=== PATIENT | female | born 1980 | race American Indian/Alaskan Native ===

== ENCOUNTER 2016-09-06 04:28 | Emergency (ER) | payer MEDICAID ==
[2016-09-06 04:46] VITALS: BP 126/81
[2016-09-06 06:11] LABS: Basophils % (Auto) 0.7 % (0.0-1.8); Eosinophils % (Auto) 0.9 % (0.0-4.3); Hematocrit 37.2 % (30.3-42.9); Hemoglobin 12.5 gm/dl (10.1-14.3); Mean Corpuscular HGB Conc 34 % (30-34); Mean Corpuscular Hemoglobin 27 pg (28-32); Mean Corpuscular Volume 82 fl (79-97); Platelet Count 222 K/mm3 (140-440); Red Blood Count 4.56 M/mm3 (3.65-5.03); Red Cell Distribution Width 15.5 % (13.2-15.2); White Blood Count 3.5 K/mm3 (4.5-11.0)
[2016-09-06 06:28] LABS: Anion Gap 19 mmol/L; Blood Urea Nitrogen 6 mg/dL (7-17); Calcium 9.2 mg/dL (8.4-10.2); Carbon Dioxide 22 mmol/L (22-30); Chloride 99.9 mmol/L (98-107); Glucose 99 mg/dL (65-100); Potassium 3.6 mmol/L (3.6-5.0); Sodium 137 mmol/L (137-145)
--- NOTE | 2016-09-06 07:47 | XRay Report ---
ROUTINE CHEST, TWO VIEWS: HISTORY: Shortness of breath. The trachea, heart, mediastinal contour, lung [place] and bony thorax are unremarkable. No significant change since 12/21/14. IMPRESSION: Unremarkable chest x-ray.
== END 2016-09-06 11:18 | disposition left against medical advice (07) ==
LOC: ED 04:28
DX: R06.00 Dyspnea, unspecified (principal); K21.9 Gastro-esophageal reflux disease without esophagitis; I10 Essential (primary) hypertension; F17.200 Nicotine dependence, unspecified, uncomplicated; Z53.21 Procedure and treatment not carried out due to patient leaving prior to being seen by health care provider
CPT/HCPCS: 36415; 71020; 80048; 84484; 85025; 93005; 93010

== ENCOUNTER 2017-12-21 08:29 | Emergency (ER) | payer MEDICAID ==
[2017-12-21] MEDS ORDERED: NACL 0.9% 1000 ML 1,000 ML IV ONE (08:41)
[2017-12-21 09:17] LABS: Basophils % (Auto) 0.7 % (0.0-1.8); Eosinophils # (Auto) 0.1 K/mm3 (0.0-0.4); Eosinophils % (Auto) 3.7 % (0.0-4.3); Hematocrit 39.8 % (30.3-42.9); Hemoglobin 13.1 gm/dl (10.1-14.3); Lymphocytes # (Auto) 1.9 K/mm3 (1.2-5.4); Mean Corpuscular HGB Conc 33 % (30-34); Mean Corpuscular Hemoglobin 27 pg (28-32); Mean Corpuscular Volume 83 fl (79-97); Monocytes # (Auto) 0.2 K/mm3 (0.0-0.8); Monocytes % (Auto) 5.5 % (0.0-7.3); Platelet Count 279 K/mm3 (140-440); Red Blood Count 4.79 M/mm3 (3.65-5.03); Red Cell Distribution Width 15.6 % (13.2-15.2)
[2017-12-21 09:41] LABS: Alanine Aminotransferase 10 units/L (7-56); Albumin 4.2 g/dL (3.9-5); BUN/Creatinine Ratio 11; Blood Urea Nitrogen 8 mg/dL (7-17); Hemolysis Index 12
[2017-12-21] MEDS ORDERED: ZOFRAN IV ONE (10:00)
[2017-12-21] MEDS ORDERED: MORPHINE IV PRN (10:00)
--- NOTE | 2017-12-21 10:08 | Emergency Department Report ---
ED General Adult HPI - General Chief complaint: Abdominal Pain Stated complaint: BACK AND CHEST PAIN Time Seen by Provider: 12/21/17 09:38 Source: patient, family Mode of arrival: Wheelchair Limitations: Physical Limitation - Related Data Home Medications Medication Instructions Recorded Confirmed Last Taken raNITIdine HCl [Ranitidine 150mg 150 mg PO BID 08/11/14 08/22/14 08/21/14 Cap] Previous Rx's Medication Instructions Recorded Last Taken Type HYDROcodone/APAP 5-325 [[place] 1 each PO Q6HR PRN #20 tablet 08/12/14 08/21/14 Rx 5/325] Oxycodone HCl/Acetaminophen 1 each PO Q8HR PRN #20 tablet 08/22/14 Unknown Rx [Percocet 10-325 mg] cephALEXin [Keflex] 500 mg PO Q8H #20 capsule 08/22/14 Unknown Rx ALBUTEROL Inhaler [ProAir HFA 2 puff IH QID PRN #1 inhalation 12/21/14 Unknown Rx Inhaler] Ibuprofen [Motrin 800 MG tab] 800 mg PO Q8HR PRN #30 tablet 12/21/14 Unknown Rx traMADol [Ultram 50 MG tab] 50 mg PO Q6HR PRN #20 tablet 12/21/14 Unknown Rx Acetaminophen/Codeine [Tylenol 1 tab PO Q6H PRN #12 tab 12/21/17 Unknown Rx /Codeine # 3 tab] Naproxen [Naprosyn] 500 mg PO Q12H 3 Days #6 tablet 12/21/17 Unknown Rx Promethazine [Phenergan TAB] 25 mg PO Q8HR PRN #12 tab 12/21/17 Unknown Rx Sulfamethoxazole/Trimethoprim 1 each PO BID 3 Days #6 tablet 12/21/17 Unknown Rx [Bactrim DS TAB] Allergies Allergy/AdvReac Type Severity Reaction Status Date / Time No Known Allergies Allergy Verified 05/16/13 23:52 ED Review of Systems ROS: Stated complaint: BACK AND CHEST PAIN Other details as noted in HPI ED Past Medical Hx - Past Medical History Previous Medical History?: Yes Hx Hypertension: Yes Hx Heart Attack/AMI: No Hx GERD: Yes Hx Liver Disease: No Hx Renal Disease: No Hx Sickle Cell Disease: No Hx Seizures: No Hx Asthma: No Hx COPD: No - Surgical History Past Surgical History?: Yes Hx Cholecystectomy: Yes (08/12/14 ([facility])) - Social History Smoking Status: Current Every Day Smoker Substance Use Type: None - Medications Home Medications: Home Medications Medication Instructions Recorded Confirmed Last Taken Type raNITIdine HCl [Ranitidine 150mg 150 mg PO BID 08/11/14 08/22/14 08/21/14 History Cap] HYDROcodone/APAP 5-325 [[place] 1 each PO Q6HR PRN #20 tablet 08/12/14 08/22/14 Rx 5/325] Oxycodone HCl/Acetaminophen 1 each PO Q8HR PRN #20 tablet 08/22/14 Unknown Rx [Percocet 10-325 mg] cephALEXin [Keflex] 500 mg PO Q8H #20 capsule 08/22/14 Unknown Rx ALBUTEROL Inhaler [ProAir HFA 2 puff IH QID PRN #1 inhalation 12/21/14 Unknown Rx Inhaler] Ibuprofen [Motrin 800 MG tab] 800 mg PO Q8HR PRN #30 tablet 12/21/14 Unknown Rx traMADol [Ultram 50 MG tab] 50 mg PO Q6HR PRN #20 tablet 12/21/14 Unknown Rx Acetaminophen/Codeine [Tylenol 1 tab PO Q6H PRN #12 tab 12/21/17 Unknown Rx /Codeine # 3 tab] Naproxen [Naprosyn] 500 mg PO Q12H 3 Days #6 tablet 12/21/17 Unknown Rx Promethazine [Phenergan TAB] 25 mg PO Q8HR PRN #12 tab 12/21/17 Unknown Rx Sulfamethoxazole/Trimethoprim 1 each PO BID 3 Days #6 tablet 12/21/17 Unknown Rx [Bactrim DS TAB] ED Physical Exam - General Limitations: Physical Limitation ED Course Vital Signs 12/21/17 08:34 Temperature 98.6 F Pulse Rate 86 Respiratory 24 Rate Blood Pressure 154/105 O2 Sat by Pulse 98 Oximetry - Reevaluation(s) Reevaluation #1: 12/21/17 10:50 Patient started on normal saline 1 L, she is given Zofran 8 mg IV and morphine 4 mg IV and her pain has subsided for now. She is awaiting CT scan with IV contrast. ED Medical Decision Making - Lab Data Result diagrams: 12/21/17 09:00 12/21/17 09:00 Lab Results 12/21/17 12/21/17 12/21/17 Range/Units 09:00 09:00 10:28 WBC 3.8 L (4.5-11.0) K/mm3 RBC 4.79 (3.65-5.03) M/mm3 Hgb 13.1 (10.1-14.3) gm/dl Hct 39.8 (30.3-42.9) % MCV 83 (79-97) fl MCH 27 L (28-32) pg MCHC 33 (30-34) % RDW 15.6 H (13.2-15.2) % Plt Count 279 (140-440) K/mm3 Lymph % (Auto) 50.0 H (13.4-35.0) % [place] % (Auto) 5.5 (0.0-7.3) % Eos % (Auto) 3.7 (0.0-4.3) % Baso % (Auto) 0.7 (0.0-1.8) % Lymph # 1.9 (1.2-5.4) K/mm3 [place] # 0.2 (0.0-0.8) K/mm3 Eos # 0.1 (0.0-0.4) K/mm3 Baso # 0.0 (0.0-0.1) K/mm3 Seg Neutrophils % 40.1 (40.0-70.0) % Seg Neutrophils # 1.5 L (1.8-7.7) K/mm3 Sodium 139 (137-145) mmol/L Potassium 3.7 (3.6-5.0) mmol/L Chloride 105.9 (98-107) mmol/L Carbon Dioxide 21 L (22-30) mmol/L Anion Gap 16 mmol/L BUN 8 (7-17) mg/dL Creatinine 0.7 (0.7-1.2) mg/dL Estimated GFR > 60 ml/min BUN/Creatinine Ratio 11 % Glucose 88 (65-100) mg/dL Calcium 9.0 (8.4-10.2) mg/dL Total Bilirubin 0.20 (0.1-1.2) mg/dL AST 15 (5-40) units/L ALT 10 (7-56) units/L Alkaline Phosphatase 59 (35-129) units/L Troponin T < 0.010 (0.00-0.029) ng/mL Total Protein 7.0 (6.3-8.2) g/dL Albumin 4.2 (3.9-5) g/dL Albumin/Globulin Ratio 1.5 % Lipase 20 (13-60) units/L HCG, Qual (Negative) Urine Color (Yellow) Urine Turbidity (Clear) Urine pH (5.0-7.0) Ur Specific [place] (1.003-1.030) Urine Protein (Negative) mg/dL Urine Glucose (UA) (Negative) mg/dL Urine Ketones (Negative) mg/dL Urine Blood (Negative) Urine Nitrite (Negative) Urine Bilirubin (Negative) Urine Urobilinogen (<2.0) mg/dL Ur Leukocyte Esterase (Negative) Urine WBC (Auto) (0.0-6.0) /HPF Urine RBC (Auto) (0.0-6.0) /HPF U Epithel Cells (Auto) (0-13.0) /HPF Urine Bacteria (Auto) (Negative) /HPF Urine Mucus /HPF 12/21/17 12/21/17 Range/Units 10:28 Unknown WBC (4.5-11.0) K/mm3 RBC (3.65-5.03) M/mm3 Hgb (10.1-14.3) gm/dl Hct (30.3-42.9) % MCV (79-97) fl MCH (28-32) pg MCHC (30-34) % RDW (13.2-15.2) % Plt Count (140-440) K/mm3 Lymph % (Auto) (13.4-35.0) % [place] % (Auto) (0.0-7.3) % Eos % (Auto) (0.0-4.3) % Baso % (Auto) (0.0-1.8) % Lymph # (1.2-5.4) K/mm3 [place] # (0.0-0.8) K/mm3 Eos # (0.0-0.4) K/mm3 Baso # (0.0-0.1) K/mm3 Seg Neutrophils % (40.0-70.0) % Seg Neutrophils # (1.8-7.7) K/mm3 Sodium (137-145) mmol/L Potassium (3.6-5.0) mmol/L Chloride (98-107) mmol/L Carbon Dioxide (22-30) mmol/L Anion Gap mmol/L BUN (7-17) mg/dL Creatinine (0.7-1.2) mg/dL Estimated GFR ml/min BUN/Creatinine Ratio % Glucose (65-100) mg/dL Calcium (8.4-10.2) mg/dL Total Bilirubin (0.1-1.2) mg/dL AST (5-40) units/L ALT (7-56) units/L Alkaline Phosphatase (35-129) units/L Troponin T (0.00-0.029) ng/mL Total Protein (6.3-8.2) g/dL Albumin (3.9-5) g/dL Albumin/Globulin Ratio % Lipase (13-60) units/L HCG, Qual Negative (Negative) Urine Color Yellow (Yellow) Urine Turbidity Slightly-cloudy (Clear) Urine pH 5.0 (5.0-7.0) Ur Specific [place] 1.024 (1.003-1.030) Urine Protein <15 mg/dl (Negative) mg/dL Urine Glucose (UA) Neg (Negative) mg/dL Urine Ketones Neg (Negative) mg/dL Urine Blood Sm (Negative) Urine Nitrite Neg (Negative) Urine Bilirubin Neg (Negative) Urine Urobilinogen 2.0 (<2.0) mg/dL Ur Leukocyte Esterase Neg (Negative) Urine WBC (Auto) 1.0 (0.0-6.0) /HPF Urine RBC (Auto) 4.0 (0.0-6.0) /HPF U Epithel Cells (Auto) 4.0 (0-13.0) /HPF Urine Bacteria (Auto) 1+ (Negative) /HPF Urine Mucus 3+ /HPF Urine culture sent - EKG Data -: EKG Interpreted by Me (attending physician) EKG shows normal: sinus rhythm Rate: normal (69 bpm) - EKG Data Interpretation: no acute changes, normal EKG - Radiology Data Radiology results: report reviewed CT scan of the abdomen and pelvis with IV contrast dictated by radiologist's report reviewed by myself. Please see report below Patient: SONYA CASTRO MR#: [id number] : 1980 Acct:[id number] Age/Sex: 37 / F ADM Date: 12/21/17 Loc: ED Attending Dr: Ordering Physician: JOSH SANCHEZ Date of Service: 12/21/17 Procedure(s): CT abdomen pelvis w con Accession Number(s): [id number] cc: JOSH SANCHEZ CT ABDOMEN PELVIS WITH CONTRAST: HISTORY: Abdominal pain, back pain, nausea. COMPARISON: 08/22/14. TECHNIQUE: Helical CT in 1.25mm intervals following IV contrast. Sagittal and coronal reconstructions. FINDINGS: Lung bases: Normal. Liver: Normal. Biliary system: Cholecystectomy. No biliary dilatation. Pancreas: Normal. Spleen: Normal. Kidneys/ureters/bladder: Normal. Adrenal glands: Normal. Aorta: Normal. Intestines: Within normal limits given no oral contrast was administered. No inflammation or obstruction. Appendix: Normal. Pelvic viscera: A 1.4 cm peripherally enhancing left ovarian cyst is identified the uterus and right adnexa are unremarkable. Ascites: None. Adenopathy: None. Musculoskeletal: Moderate degenerative disc disease is noted at L5-S1. No bony fracture or malalignment. A small umbilical hernia containing fat is identified. IMPRESSION: No acute inflammatory process is identified. 1.4 cm left ovarian cyst. Degenerative disc disease at L5-S1. Umbilical hernia containing fat. Cholecystectomy. Transcribed By: TTR Dictated By: KARLA LOYD JR, MD Electronically Authenticated By: KARLA LOYD JR, MD Signed Date/Time: 12/21/17 122 DD/ 1221 TD/TT: 12/21/17 1223 - Medical Decision Making This is a 37-year-old female presented to the emergency room with back and upper abdominal pain. Patient was also complaining of midsternal chest pain with abdominal pain which she does not have any history of cardiac problems. Patient was seen and examined by myself. Physical findings for generalized abdominal tenderness, back exam is normal. Laboratory studies done CBC stable with minor abnormalities, CMP stable. Lipase stable, hCG negative. Patient had troponin which were negative. EKG is stable. CT scan of the abdomen and pelvis with IV contrast dictated by radiologist and report reviewed by myself. No acute inflammatory process is identified. 1.4 cm left ovarian cyst. Degenerative disc disease at L5-S1. Umbilical hernia containing fat. Cholecystectomy. CT scan and laboratory findings along with diagnosis and treatment plan explained to patient she was understanding. She was given morphine 8 mg IV in 4 mg increments for abdominal pain which resolved. Her back pain is also resolved. She was given Zofran 8 mg IV and 1 L normal saline in the emergency room and she has no nausea present. I discussed the patient as she will need to follow up with [facility] for ovarian cysts, orthopedic for moderate degenerative disc disease. Patient vital signs stable she is afebrile and is pain-free at present. She is nontoxic in appearance. Able to tolerate water without any nausea or vomiting. Discharged home in stable condition to follow up with [facility] on 12/25/2017 and also her primary care physician and we will give referral to see orthopedic doctor. Discharged home with her family with prescription for naproxen and Phenergan. - Differential Diagnosis appendicitis, pancreatitis, SBO, ectopic , Pyelo, UTI, Cyst Critical care attestation.: If time is entered above; I have spent that time in minutes in the direct care of this critically ill patient, excluding procedure time. ED Disposition Clinical Impression: Left ovarian cyst, Degenerative disc disease, lumbar, Acute cystitis with hematuria, Atypical chest pain Abdominal pain Qualifiers: Abdominal location: generalized Qualified Code(s): R10.84 - Generalized abdominal pain Back pain Qualifiers: Back pain location: low back pain Chronicity: unspecified Back pain laterality : bilateral Sciatica presence: without sciatica Qualified Code(s): M54.5 - Low back pain Nausea & vomiting Qualifiers: Vomiting type: unspecified Vomiting Intractability: non-intractable Qualified Code(s): R11.2 - Nausea with vomiting, unspecified Umbilical hernia Qualifiers: Obstruction and gangrene presence: without obstruction or gangrene Qualified Code(s): K42.9 - Umbilical hernia without obstruction or gangrene Disposition: DC-01 TO HOME OR SELFCARE Is pt being admited?: No Does the pt Need Aspirin: No Condition: Stable Instructions: Abdominal Pain (ED), Degenerative Disc Disease (ED), Acute Nausea and Vomiting (ED), Acute Abdominal Pain (ED), Ovarian Cyst (ED), Umbilical Hernia (ED), Urinary Tract Infection in Women (ED), Chest Pain (ED) Additional Instructions: Please follow up with [facility] in 4 days regarding ovarian cysts. Follow-up with orthopedic doctor for management of lower back pain with findings for degenerative disc disease at the lumbar spine area. Take naproxen for pain as instructed for pain Take Bactrim DS for 3 days for small urinary tract infection. Follow-up with primary care physician in 3-5 days for management of small urinary tract infection, stable umbilical hernia pain. Your primary care can refer you for follow-up for umbilical hernia to specialist if needed. If he do not have a primary care doctor follow[facility]up with [facility]. Increase her fluid intake His return to emergency room if your symptoms return. Prescriptions: Acetaminophen/Codeine [Tylenol /Codeine # 3 tab] 1 tab PO Q6H PRN #12 tab PRN Reason: back pain Naproxen [Naprosyn] 500 mg PO Q12H 3 Days #6 tablet Promethazine [Phenergan TAB] 25 mg PO Q8HR PRN #12 tab PRN Reason: Nausea Sulfamethoxazole/Trimethoprim [Bactrim DS TAB] 1 each PO BID 3 Days #6 tablet Referrals: PRIMARY CAREMD [Primary Care Provider] - 3-5 Days [facility] [Outside] - 3-5 Days KARLA MORRISSEY MD [Staff Physician] - 3-5 Days Forms: Work/School Release Form(ED)
[2017-12-21 10:25] LABS: Bacteria,Urine 1+ /HPF (Negative); Bilirubin,Urine NEG (Negative); Blood,Urine SM (Negative); Color,Urine Yellow (Yellow); Mucus,Urine 3+ /HPF; Protein,Urine <15 mg/dL mg/dL (Negative)
[2017-12-21] MEDS: MORPHINE IV ONE ×3 (10:30→12:00)
--- NOTE | 2017-12-21 12:30 | Cat Scan Report ---
CT ABDOMEN PELVIS WITH CONTRAST: HISTORY: Abdominal pain, back pain, nausea. COMPARISON: 08/22/14. TECHNIQUE: Helical CT in 1.25mm intervals following IV contrast. Sagittal and coronal reconstructions. FINDINGS: Lung bases: Normal. Liver: Normal. Biliary system: Cholecystectomy. No biliary dilatation. Pancreas: Normal. Spleen: Normal. Kidneys/ureters/bladder: Normal. Adrenal glands: Normal. Aorta: Normal. Intestines: Within normal limits given no oral contrast was administered. No inflammation or obstruction. Appendix: Normal. Pelvic viscera: A 1.4 cm peripherally enhancing left ovarian cyst is identified the uterus and right adnexa are unremarkable. Ascites: None. Adenopathy: None. Musculoskeletal: Moderate degenerative disc disease is noted at L5-S1. No bony fracture or malalignment. A small umbilical hernia containing fat is identified. IMPRESSION: No acute inflammatory process is identified. 1.4 cm left ovarian cyst. Degenerative disc disease at L5-S1. Umbilical hernia containing fat. Cholecystectomy.
[2017-12-21 13:59] VITALS: BP 124/82
== END 2017-12-21 13:45 | disposition home or self-care (01) ==
LOC: ED 08:29
DX: N83.202 Unspecified ovarian cyst, left side (principal); M51.36 Other intervertebral disc degeneration, lumbar region; N30.01 Acute cystitis with hematuria; R07.89 Other chest pain; R11.2 Nausea with vomiting, unspecified; K42.9 Umbilical hernia without obstruction or gangrene; I10 Essential (primary) hypertension; K21.9 Gastro-esophageal reflux disease without esophagitis; F17.200 Nicotine dependence, unspecified, uncomplicated; Z90.49 Acquired absence of other specified parts of digestive tract
CPT/HCPCS: 36415; 74177; 80053; 81001; 83690; 84484; 84703; 85025; 87086; 93005; 93010; 96361; 96374; 96375; 96376; 99284; J2270; J2405; J7030; Q9967

== ENCOUNTER 2019-11-12 16:58 | Emergency (ER) | payer MEDICAID ==
[2019-11-12 19:30] VITALS: BP 142/108
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
== END 2019-11-12 21:34 | disposition home or self-care (01) ==
LOC: ED 16:58
DX: M25.561 Pain in right knee (principal); M25.551 Pain in right hip; K21.9 Gastro-esophageal reflux disease without esophagitis; F17.200 Nicotine dependence, unspecified, uncomplicated; Z90.49 Acquired absence of other specified parts of digestive tract; Z79.899 Other long term (current) drug therapy; Z91.013 Allergy to seafood; V63.9XXA Unspecified occupant of heavy transport vehicle injured in collision with car, pick-up truck or van in traffic accident, initial encounter; Y93.89 Activity, other specified; Y92.488 Other paved roadways as the place of occurrence of the external cause; Y99.8 Other external cause status
CPT/HCPCS: 99283

== ENCOUNTER 2020-01-18 00:43 | Emergency (ER) | payer MEDICAID, OTHER ==
[2020-01-18 01:34] VITALS: BP 129/82
--- NOTE | 2020-01-18 02:20 | XRay Report ---
LEFT KNEE 3 VIEWS. INDICATION / CLINICAL INFORMATION: left knee pain COMPARISON: None available. FINDINGS: BONES / JOINT(S): No acute fracture or subluxation. Mild DJD at the medial compartment. SOFT TISSUES: Small joint effusion. ADDITIONAL FINDINGS: None. Signer Name: Ray Tomlin MD Signed: 01/18/2020 2:16 AM Workstation Name: [id number]
[2020-01-18] MEDS ORDERED: predniSONE 20 MG TAB PO ONE (02:37)
[2020-01-18] MEDS ORDERED: ONDANSETRON 4 MG ODT TAB PO ONE (02:37)
[2020-01-18] MEDS ORDERED: IBUPROFEN 600 MG TAB PO ONE (02:37)
[2020-01-18] MEDS ORDERED: HYDROcodone/ACETAMINOPHEN 7.5-325MG TAB PO ONE (02:37)
--- NOTE | 2020-01-18 03:19 | Emergency Department Report ---
ED Extremity Problem HPI - General Chief complaint: Extremity Injury, Lower Stated complaint: LEFT LEG PAIN Source: patient Mode of arrival: Ambulatory Limitations: No Limitations - History of Present Illness Initial comments: Patient is a 39-year-old -[place] female with a history of GERD, asthma and osteoarthritis who presents to the ED with complaint of acute onset p ersistent nontraumatic left knee pain and swelling for the last 1 week. Patient states that the pain has been persistent and the swelling has gotten worse in the last 4 days. Patient states that she has been taking [id number]-tic-[id number] medication with no relief. Patient denies fall, traumatic injury, heavy lifting, low back pain, hip pain, chest pain, shortness of breath, dizziness, numbness and tingling or weakness of lower extremities bilaterally, fever and chills, nausea and vomiting. MD Complaint: extremity pain (Left knee pain), extremity swelling (Left knee), joint swelling (Left knee swelling), joint paint (Left knee) -: Sudden, week(s) (1) Location: left, lower extremity (LEFT KNEE), knee History of Same: Yes -: Yes arthralgia (left knee pain) Severity scale (0 -10): 8 Quality: aching, sharp Consistency: constant Improves with: nothing Worsens with: weight bearing, walking, exertion, palpation Associated Symptoms: denies other symptoms, arthralgias (Left knee pain). denies: chest pain, shortness of breath - Related Data Home Medications Medication Instructions Recorded Confirmed Last Taken raNITIdine HCL [Ranitidine 150mg 150 mg PO BID 08/11/14 08/22/14 08/21/14 Cap] Previous Rx's Medication Instructions Recorded Last Taken Type HYDROcodone/APAP 5-325 [[place] 1 each PO Q6HR PRN #20 tablet 08/12/14 08/21/14 Rx 5/325] Oxycodone HCl/Acetaminophen 1 each PO Q8HR PRN #20 tablet 08/22/14 Unknown Rx [Percocet 10-325 mg] cephALEXin [Keflex] 500 mg PO Q8H #20 capsule 08/22/14 Unknown Rx Albuterol Mdi (or & Nicu Only) 2 puff IH QID PRN #1 inhalation 12/21/14 Unknown Rx [ProAir HFA Inhaler] Ibuprofen [Motrin 800 MG tab] 800 mg PO Q8HR PRN #30 tablet 12/21/14 Unknown Rx traMADoL [Ultram 50 MG tab] 50 mg PO Q6HR PRN #20 tablet 12/21/14 Unknown Rx Acetaminophen/Codeine [Tylenol 1 tab PO Q6H PRN #12 tab 12/21/17 Unknown Rx /Codeine # 3 tab] Promethazine [Phenergan TAB] 25 mg PO Q8HR PRN #12 tab 12/21/17 Unknown Rx Sulfamethoxazole/Trimethoprim 1 each PO BID 3 Days #6 tablet 12/21/17 Unknown Rx [Bactrim DS TAB] Benzonatate [Tessalon Perles] 100 mg PO Q8HR PRN #20 capsule 12/05/18 Unknown Rx predniSONE [Deltasone] 50 mg PO QDAY #5 tab 12/05/18 Unknown Rx Naproxen [Naprosyn] 500 mg PO Q12H PRN 3 Days #30 01/18/20 Unknown Rx tablet predniSONE [Deltasone] 60 mg PO QDAY #15 tab 01/18/20 Unknown Rx tiZANidine [Zanaflex 4mg TAB] 4 mg PO Q12H PRN #30 tablet 01/18/20 Unknown Rx Allergies Allergy/AdvReac Type Severity Reaction Status Date / Time shellfish derived Allergy Shortness Verified 12/04/18 23:48 of Breath ED Review of Systems ROS: Stated complaint: LEFT LEG PAIN Other details as noted in HPI Constitutional: denies: chills, fever Eyes: denies: eye pain, eye discharge, vision change ENT: denies: ear pain, throat pain Respiratory: denies: cough, shortness of breath, wheezing Cardiovascular: denies: chest pain, palpitations Endocrine: no symptoms reported Gastrointestinal: denies: abdominal pain, nausea, diarrhea Genitourinary: denies: urgency, dysuria, discharge Musculoskeletal: joint swelling (Left knee pain and swelling), arthralgia (Left knee pain and swelling). denies: back pain Skin: denies: rash, lesions Neurological: denies: headache, weakness, paresthesias Psychiatric: denies: anxiety, depression Hematological/Lymphatic: denies: easy bleeding, easy bruising ED Past Medical Hx - Past Medical History Previous Medical History?: Yes Hx Hypertension: No Hx Heart Attack/AMI: No Hx GERD: Yes Hx Liver Disease: No Hx Renal Disease: No Hx Sickle Cell Disease: No Hx Seizures: No Hx Asthma: Yes Hx COPD: No - Surgical History Past Surgical History?: Yes Hx Cholecystectomy: Yes (08/12/14 ([facility])) Additional Surgical History: Tubal Ligation - Social History Smoking Status: Current Every Day Smoker Substance Use Type: None - Medications Home Medications: Home Medications Medication Instructions Recorded Confirmed Last Taken Type raNITIdine HCL [Ranitidine 150mg 150 mg PO BID 08/11/14 08/22/14 08/21/14 History Cap] HYDROcodone/APAP 5-325 [[place] 1 each PO Q6HR PRN #20 tablet 08/12/14 08/22/14 08/21/14 Rx 5/325] Oxycodone HCl/Acetaminophen 1 each PO Q8HR PRN #20 tablet 08/22/14 Unknown Rx [Percocet 10-325 mg] cephALEXin [Keflex] 500 mg PO Q8H #20 capsule 08/22/14 Unknown Rx Albuterol Mdi (or & Nicu Only) 2 puff IH QID PRN #1 inhalation 12/21/14 Unknown Rx [ProAir HFA Inhaler] Ibuprofen [Motrin 800 MG tab] 800 mg PO Q8HR PRN #30 tablet 12/21/14 Unknown Rx traMADoL [Ultram 50 MG tab] 50 mg PO Q6HR PRN #20 tablet 12/21/14 Unknown Rx Acetaminophen/Codeine [Tylenol 1 tab PO Q6H PRN #12 tab 12/21/17 Unknown Rx /Codeine # 3 tab] Promethazine [Phenergan TAB] 25 mg PO Q8HR PRN #12 tab 12/21/17 Unknown Rx Sulfamethoxazole/Trimethoprim 1 each PO BID 3 Days #6 tablet 12/21/17 Unknown Rx [Bactrim DS TAB] Benzonatate [Tessalon Perles] 100 mg PO Q8HR PRN #20 capsule 12/05/18 Unknown Rx predniSONE [Deltasone] 50 mg PO QDAY #5 tab 12/05/18 Unknown Rx Naproxen [Naprosyn] 500 mg PO Q12H PRN 3 Days #30 01/18/20 Unknown Rx tablet predniSONE [Deltasone] 60 mg PO QDAY #15 tab 01/18/20 Unknown Rx tiZANidine [Zanaflex 4mg TAB] 4 mg PO Q12H PRN #30 tablet 01/18/20 Unknown Rx ED Physical Exam - General Limitations: No Limitations General appearance: alert, in no apparent distress - Head Head exam: Present: atraumatic, normocephalic, normal inspection - Eye Eye exam: Present: normal appearance, PERRL, EOMI Pupils: Present: normal accommodation - ENT ENT exam: Present: normal exam, normal orophraynx, mucous membranes moist, TM's normal bilaterally, normal external ear exam - Neck Neck exam: Present: normal inspection, full ROM - Respiratory Respiratory exam: Present: normal lung sounds bilaterally. Absent: respiratory distress, wheezes, rales, rhonchi, chest wall tenderness, accessory muscle use, decreased breath sounds - Cardiovascular Cardiovascular Exam: Present: regular rate, normal rhythm, normal heart sounds. Absent: systolic murmur, diastolic murmur, rubs, gallop - GI/Abdominal GI/Abdominal exam: Present: soft, normal bowel sounds. Absent: tenderness, guarding, rebound, hyperactive bowel sounds, hypoactive bowel sounds - Extremities Exam Extremities exam: Present: normal inspection, full ROM, tenderness (Palpable left knee tenderness with limited range of motion due to pain), normal capillary refill, joint swelling (Palpable left knee swelling with effusion). Absent: pedal edema, calf tenderness - Back Exam Back exam: Present: normal inspection, full ROM. Absent: tenderness, CVA tenderness (R), muscle spasm, paraspinal tenderness - Neurological Exam Neurological exam: Present: alert, oriented X3, CN II-XII intact, normal gait, reflexes normal - Psychiatric Psychiatric exam: Present: normal affect, normal mood - Skin Skin exam: Present: warm, dry, intact, normal color. Absent: rash ED Course Vital Signs 01/18/20 01:30 Temperature 98.0 F Pulse Rate 79 Respiratory 18 Rate Blood Pressure 129/82 O2 Sat by Pulse 99 Oximetry ED Medical Decision Making - Radiology Data Radiology results: report reviewed, image reviewed Findings [facility] [address] [place] [address] XRay Report Signed Patient: SONYA CASTRO MR#: [id number] : 1980 Acct:[id number] Age/Sex: 39 / F ADM Date: 01/18/20 Loc: ED Attending Dr: Ordering Physician: DARA GUTIERREZ III, MD Date of Service: 01/18/20 Procedure(s): XR knee 3V LT Accession Number(s): [id number] cc: DARA GUTIERREZ III, MD Fluoro Time In Minutes: LEFT KNEE 3 VIEWS. INDICATION / CLINICAL INFORMATION: left knee pain COMPARISON: None available. FINDINGS: BONES / JOINT(S): No acute fracture or subluxation. Mild DJD at the medial com partment. SOFT TISSUES: Small joint effusion. ADDITIONAL FINDINGS: None. Signer Name: Ray Tomlin MD Signed: 01/18/2020 2:16 AM Workstation Name: [id number] Transcribed By: ES Dictated By: Ray Tomlin MD Electronically Authenticated By: Ray Tomlin MD Signed Date/Time: 01/18/20215 DD/ 5 TD/TT: - Medical Decision Making This is a 39-year-old -[place] female with a history of GERD and osteoarthritis who presents to the ED with complaint of acute onset persistent nontraumatic left knee pain and swelling for the last 1 week. Patient states that the pain has been persistent and the swelling has gotten worse in the last 4 days. Patient states that she has been taking [id number] medication with no relief. In the ED, patient is alert and oriented x3 and is not in distress. Patient was treated for pain in the ED and left knee x-ray shows no acute fractures or subluxations but mild degenerative joint disease with small effusion. On reevaluation, patient's pain is well controlled medications. Patient's left knee was splinted with Xavier wrap and the patient was discharged home on pain medications and advised to follow-up with her primary care physician in 7 to 10 days for reevaluation or return to the ED immediately if symptoms get worse. - Differential Diagnosis Knee tendinitis; osteoarthritis; muscle strain; knee sprain Critical care attestation.: If time is entered above; I have spent that time in minutes in the direct care of this critically ill patient, excluding procedure time. ED Disposition Clinical Impression: Primary osteoarthritis of left knee Muscle strain of left knee Qualifiers: Encounter type: initial encounter Qualified Code(s): S86.912A - Strain of unspecified muscle(s) and tendon(s) at lower leg level, left leg, initial encounter Disposition: DC-01 TO HOME OR SELFCARE Is pt being admited?: No Does the pt Need Aspirin: No Condition: Stable Instructions: Muscle Strain (ED), Osteoarthritis (ED) Additional Instructions: The x-ray of your left knee shows osteoarthritis with fluid in the joint. Take medication with food, drink plenty of fluids and follow-up with your primary care physician in 7 to 10 days for reevaluation. Return to the ED immediately if symptoms get worse. Prescriptions: predniSONE [Deltasone] 60 mg PO QDAY #15 tab Naproxen [Naprosyn] 500 mg PO Q12H PRN 3 Days #30 tablet PRN Reason: Pain , Severe (7-10) tiZANidine [Zanaflex 4mg TAB] 4 mg PO Q12H PRN #30 tablet PRN Reason: Muscle Spasm Referrals: AILEEN BONDS MD [Primary Care Provider] - 3-5 Days Time of Disposition: 03:20 Print Language: BRAZILIAN
== END 2020-01-18 04:00 | disposition home or self-care (01) ==
LOC: ED 00:43
DX: S86.912A Strain of unspecified muscle(s) and tendon(s) at lower leg level, left leg, initial encounter (principal); M17.12 Unilateral primary osteoarthritis, left knee; K21.9 Gastro-esophageal reflux disease without esophagitis; J45.909 Unspecified asthma, uncomplicated; F17.200 Nicotine dependence, unspecified, uncomplicated; Z90.49 Acquired absence of other specified parts of digestive tract; Z98.51 Tubal ligation status; Z79.1 Long term (current) use of non-steroidal anti-inflammatories (NSAID); Z79.899 Other long term (current) drug therapy; Z91.013 Allergy to seafood; X58.XXXA Exposure to other specified factors, initial encounter; Y93.89 Activity, other specified; Y92.89 Other specified places as the place of occurrence of the external cause; Y99.8 Other external cause status
CPT/HCPCS: 73562; 99284; J7512; Q0162